=== PATIENT | female | born 1995 | race Caucasian/White ===

== ENCOUNTER 2024-04-15 09:45 | Outpatient (RCR) | payer OTHER, SELFPAY ==
--- NOTE | 2024-03-27 13:48 | OT.OP.EVAL ---
Visit Care Team Role Provider Type Sawyer Rodríguez DO Attending Provider Non-Staff Family Provider Primary Care Provider Referring Provider Specialty: Family Practice Address: [address] [place] [address], [id number] Email: Occupational Therapy Initial Evaluation OT Outpatient Adult Evaluation Start: 03/27/24 13:08 Freq: Status: Active Protocol: Document 03/27/24 13:09 AMS (Rec: 03/27/24 13:47 AMS [id number]) General Information - Adult Visit Number 11/[id number] Plan of Care Dates 03/27/24 - 05/08/24 Insurance Information Prime; *Auth x 12 visits Visit Start Time 11:15 Visit Stop Time 11:45 Treatment Setting Outpatient Care Note Type Initial Evaluation Referring Physician Sawyer Rodríguez MD Reason for Referral Chronic B hand pain Identification Confirmed Yes Identification Confirmed By Self Goals Short Term Goals 1. Angelina will present with improvements relative to wrist strength: 1a. 5/5 L wrist flex vs initial 4+/5 L wrist flex 1b. 5/[address] vs initial 4+/[address] 1c. 5/5 R wrist UD vs initial 4+/5 R wrist UD Clinical Psychologist Private Practice Goals 1. Angelina will be modified independent with home exercise program referring to written and visual instructions as needed. 2. Angelina will present with increased functional abilities ; this will be evidenced by the followina. Angelina will obtain a QuickDASH UE Outcome Measure score of 25.0 or less vs initial score of 52.27. 2b. Angelina will obtain a QuickDASH UE Work Module score of 50.00 or less vs initial score of 62.5. Assessment/Plan Treatment Assessment Angelina is 28 years-old; she is R hand dominant. She was referred to outpatient OT by Sawyer Rodríguez MD, secondary to chronic bilateral hand pain . Angelina reports feeling weaker relative to hand strength. 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 She reported that symptoms presented approximately 1 year ago; she denied specific incident that led to onset of symptoms. 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 She reports constant pain; pain presents during completion of written tasks and/or prolonged prepping of fruits and vegetables (for approx 30 minutes) and/or prolonged use of personal cell phone (she holds cell phone in one hand and uses other hand to type in keys/to navigate). She does have a prescription for topical cream for pain management (which reportedly leads to worsening of symptoms ). Medical history is significant for back and jaw pain and headaches. Wrist/Hand Pain Assessment Grid completed; indication of 5 out of 10 on pain scale relative to volar/palmar surfaces of bilateral hands; 6 out of 10 on pain scale relative to volar surfaces of 2-5 MPJs distal to PIPJs; 6 out of 10 on pain scale relative to dorsal surfaces of digits 2-5 between MPJs and PIPJs. Pain/discomfort was also indicated relative to volar/dorsal surfaces of bilateral wrists. QuickDASH UE Outcome Measure Score = 52.27 ; QuickDASH UE Work Module Score = 62.5. (+) opposition of thumbs bilaterally to each digit pad; (+) ability to execute thumb slides to each digit 2-5 bilaterally. (-) intrinsic tightness bilaterally. (+) thumb adductor tightness (R > L). 0-65 degrees bilateral active wrist ext. 0-60 degrees bilateral active wrist flex. 0-25 degrees active R wrist UD vs 0-28 degrees active L wrist UD. 0-15 degrees bilateral active wrist [address]. 0- 45 degrees active bilateral thumb palmar radial abduction; 0-45 degrees active R thumb radial abd vs 0-53 degrees active L thumb radial abd. Dynamometer II Circular Sawyer Stone Strength Testing Results w/ elbows in 90 degrees flexion = 52.0# of force R cost accounting manager (compared to 25- 29 y.o. female norm 74.5 +/- 13.9) vs 32.0# of force L cost accounting manager (compared to 25-29 y.o. female norm 63.5 +/- 12.2). Dynamometer II strength testing results w/ elbows extended = 34.0# of force R cost accounting manager vs 28.0# of force L cost accounting manager. Pinchometer strength testing results = 12.0# of force R lateral shields pinch (compared to 25-29 y.o. female norm 17.7 + /- 2.1) vs 11.5# of force L lateral shields pinch (compared to 16.6 +/- 2.1); 9.0# of force R 3-jaw pinch (compared to 25- 29 y.o. female norm 17.7 +/- 3 .2) vs 9.0# of force L 3-jaw pinch (compared to 25-29 y.o. female norm 17.0 +/- 3.0); 9.0 # of force R tip pinch ( compared to 25-29 y.o. female norm 11.9 +/- 1.8) vs 7.0# of force L tip pinch (compared to 25-29 y.o. female norm 11.3 + /- 1.8). MMT Wrist Strength Results = 5/5 R wrist ext vs 5 /5 L wrist ext; 5/5 R wrist flex vs 4+/5 L wrist flex; 5/[address] vs 4+/[address] ; 4+/5 R wrist UD vs 5/5 L wrist UD. OT recommended to address wrist/hand weakness, ROM, and to support success w/ participation in meaningful activities. Home Exercise Program 03/27/24= Instructed in passive wrist flex/ext; observed to execute passive wrist ext w/ forearm pronation. Rec hold for 20-30 sec. Instructed in bilateral thumb adductor release; rec hold of 20-30 sec and then switch and repeat w/ hold. Discussed intrinsic tightness and instructed in passive hook fist for rec hold for 20-30 sec bilaterally w/ addition of passive MPJ ext for deeper stretch. Angelina denied any questions. Length of treatment (weeks) 6 Plan of Care Start Date 03/27/24 Plan of Care End Date 05/08/24 Treatment Frequency Once a Week Therapeutic Contents Active Range of Motion, Adaptive Equipment Education, Client Education,Functional Activities,Home Exercise Program,Joint Protection, Manual Therapy,Education, Neurodevelopment Treatment, Neuromuscular Re-Education, Self-Care,Stretching/ Flexibility Activities, Therapeutic Activities, Therapeutic Exercises, Modalities Modalities As Needed,As Prescribed Additional Types of Modalities Contrast bath/Heat/Ice/ Paraffin
--- NOTE | 2024-03-31 13:52 | OT.OP.TRT ---
Visit Care Team Role Provider Type Sawyer Rodríguez DO Attending Provider Non-Staff Family Provider Primary Care Provider Referring Provider Specialty: Family Practice Address: [address] [place] [address], [id number] Email: Occupational Therapy Treatment Note OT Outpatient Treatment Note - Adult Start: 03/27/24 13:08 Freq: Status: Active Protocol: Document 03/31/24 13:01 [facility] (Rec: 03/31/24 13:09 [facility] [id number]) OT Outpatient Adult Treatment Note Session Time Visit Start Time 10:30 Visit Stop Time 11:10 Visit Information Visit Number 12/[id number] Plan of Care Dates 03/27/24 - 05/08/24 Insurance Information Prime; *Auth x 12 visits Setting Treatment Setting Outpatient Care Visit Type Note Type Treatment Note General Information General Information Angelina is 28 years-old; she is R hand dominant. She was referred to outpatient OT by Sawyer Rodríguez MD, secondary to chronic bilateral hand pain . Angelina reports feeling weaker relative to hand strength. 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 She reported that symptoms presented approximately 1 year ago; she denied specific incident that led to onset of symptoms. 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 She reports constant pain; pain presents during completion of written tasks and/or prolonged prepping of fruits and vegetables (for approx 30 minutes) and/or prolonged use of personal cell phone (she holds cell phone in one hand and uses other hand to type in keys/to navigate). She does have a prescription for topical cream for pain management (which reportedly leads to worsening of symptoms ). Medical history is significant for back and jaw pain and headaches. - Subjective Observations Angelina reports that she is getting out of the ( February 2025); - Objective Objective Measurements Please refer to below for progress towards meeting established OT goals: Short Term Goals 1. Angelina will present with improvements relative to wrist strength: 1a. 5/5 L wrist flex vs initial 4+/5 L wrist flex 1b. 5/[address] vs initial 4+/[address] 1c. 5/5 R wrist UD vs initial 4+/5 R wrist UD Sheet Mill Supervisor Goals 1. Angelina will be modified independent with home exercise program referring to written and visual instructions as needed. 2. Angelina will present with increased functional abilities ; this will be evidenced by the followina. Angelina will obtain a QuickDASH UE Outcome Measure score of 25.0 or less vs initial score of 52.27. 2b. Angelina will obtain a QuickDASH UE Work Module score of 50.00 or less vs initial score of 62.5. - Exercises 5 Descriptor Wrist strengthening exercises. TB #4. Wrist UD. Bilateral. [address] Bilateral. 2 x 15. 4 Descriptor Theraputty. Firm, blue theraputty. 3 Descriptor Weighted spherical ball. 4.4# weighted spherical ball. RD twist. R UE RD twist (wrist crepitus ulnarly) 4.4# weighted spherical ball. UD twist. 2 Descriptor Passive range of motion. 20-30 hold each exercise. Wrist flex. Elbow ext. Forearm pronation. Wrist ext. Elbow ext. Forearm supination. Wrist RD. Wrist UD. 1 Descriptor UEB. Height #4. x 8 min forwards direction. x 2 min backwards direction. Seated. - Assessment Assessment of Improvement Advanced ther ex in treatment in treatment session. Rec reducing resistance w/ R wrist twist w/ weighted spherical ball (d/t ulnar sided crepitus ); monitor positioning of wrist/elbow w/ exercise and impact. Rec reducing TB resistance from #4 to #3 for wrist strengthening; reported dull ache w/ 3 out of 10 relative to dorsum of L hand. OT recommended to address wrist/hand weakness, ROM, and to support success w/ participation in meaningful activities. Home Exercise Program 03/31/24= Instructed in passive wrist RD/UD. Rec hold for 20- 30 sec. Provided w/ firm blue theraputty for home use; instructed in care and storage of putty. Rec use for 5 to 10 min pain-free; instructed in gross flexion, lateral shields pinch, oppositional pinch, pinch and twist, and digit extension. Rec 3 x a week or as desired. 03/27/24= Instructed in passive wrist flex/ext; observed to execute passive wrist ext w/ forearm pronation. Rec hold for 20-30 sec. Instructed in bilateral thumb adductor release; rec hold of 20-30 sec and then switch and repeat w/ hold. Discussed intrinsic tightness and instructed in passive hook fist for rec hold for 20-30 sec bilaterally w/ addition of passive MPJ ext for deeper stretch. Angelina denied any questions. - Plan Therapy Recommendations Advance per Rehabilitation Protocol
--- NOTE | 2024-04-10 12:05 | OT.OP.TRT ---
Visit Care Team Role Provider Type Sawyer Rodríguez DO Attending Provider Non-Staff Family Provider Primary Care Provider Referring Provider Specialty: Family Practice Address: [address] [place] [address], [id number] Email: Occupational Therapy Treatment Note OT Outpatient Treatment Note - Adult Start: 03/27/24 13:08 Freq: Status: Active Protocol: Document 04/10/24 11:37 AMS (Rec: 04/10/24 12:05 AMS [id number]) OT Outpatient Adult Treatment Note Session Time Visit Start Time 09:00 Visit Stop Time 09:40 Visit Information Visit Number 01/[id number] Plan of Care Dates 03/27/24 - 05/08/24 Insurance Information Prime; *Auth x 12 visits Setting Treatment Setting Outpatient Care Visit Type Note Type Treatment Note General Information General Information Angelina is 28 years-old; she is R hand dominant. She was referred to outpatient OT by Swayer Rodríguez MD, secondary to chronic bilateral hand pain . Angelina reports feeling weaker relative to hand strength. 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 She reported that symptoms presented approximately 1 year ago; she denied specific incident that led to onset of symptoms. 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 She reports constant pain; pain presents during completion of written tasks and/or prolonged prepping of fruits and vegetables (for approx 30 minutes) and/or prolonged use of personal cell phone (she holds cell phone in one hand and uses other hand to type in keys/to navigate). She does have a prescription for topical cream for pain management (which reportedly leads to worsening of symptoms ). Medical history is significant for back and jaw pain and headaches. - Subjective Observations Angelina reports that she is getting out of the ( February 2025); discomfort of ulnar side of wrist primarily w/ RD w/ weighted spherical ball. Angelina reported that she woke w/ some soreness of wrists; she stated it may have been d/t her moving furniture around in her home. She reports some mild distal UE swelling which leads to intermittent removal of ring; medical history is significant for back/jaw pain and headaches. - Objective Objective Measurements Please refer to below for progress towards meeting established OT goals: Short Term Goals 1. Angelina will present with improvements relative to wrist strength: 1a. 5/5 L wrist flex vs initial 4+/5 L wrist flex 1b. 5/[address] vs initial 4+/[address] 1c. 5/5 R wrist UD vs initial 4+/5 R wrist UD Intermediate Goals 1. Angelina will be modified independent with home exercise program referring to written and visual instructions as needed. 2. Angelina will present with increased functional abilities ; this will be evidenced by the followina. Angelina will obtain a QuickDASH UE Outcome Measure score of 25.0 or less vs initial score of 52.27. 2b. Angelina will obtain a QuickDASH UE Work Module score of 50.00 or less vs initial score of 62.5. - Exercises 6 Descriptor Angled trampoline. 1000 grams. Alt throw. 3 x 15. 5 Descriptor Wrist strengthening exercises. TB #3. Wrist ext. Use of arm rest w/ elbow in flex. Bilateral. 2 x 15. Wrist flex. Elbow flex. Use of arm rest w/ elbow in flex. Bilateral. [address] Elbow flex. Use of arm rest w/ elbow in flex. Bilateral. 2 x 15. Wrist UD. Elbow near full ext w/ forearm pronation. Bilateral. 2 x 15. 4 Descriptor Theraputty. Firm, blue theraputty. 3 Descriptor Weighted spherical ball. 4.4# weighted spherical ball. RD twist. 3 x 15. 4.4# weighted spherical ball. UD twist. 2 Descriptor Passive range of motion. 20-30 hold each exercise. Wrist flex. Elbow ext. Forearm pronation. Wrist ext. Elbow ext. Forearm supination. Wrist RD. Wrist UD. 1 Descriptor UEB. Height #5. x 7 min forwards direction. x 2 min backwards direction. Seated. - Assessment Assessment of Improvement Advanced ther ex in treatment in treatment session. Advanced HEP; provided w/ personal TB# 3. Discomfort reported primarily of dorsal ulnar surface of R wrist w/ execution of primarily RD w/ weighted spherical ball. Fatigue/weakness w/ theraband strengthening exercises; thus, had her complete 2 sets of 15 ; will need ot work up to 3 sets of 15 reps as tolerated. OT recommended to address wrist/hand weakness, ROM, and to support success w/ participation in meaningful activities. Home Exercise Program 04/10/24 = Instructed in wrist TB strengthening; provided w/ TB #3 for home use. Instructed in resisted TB wrist flex, wrist ext, wrist RD, wrist UD. Rec start w/ 2 sets of 15 reps and increasing to 3 sets of 15 reps as able to do so; completing exercises every other day, or 3 x per week. 03/31/24 = Instructed in passive wrist RD/UD. Rec hold for 20-30 sec. Provided w/ firm blue theraputty for home use; instructed in care and storage of putty. Rec use for 5 to 10 min pain-free; instructed in gross flexion, lateral shields pinch, oppositional pinch, pinch and twist, and digit extension. Rec 3 x a week or as desired. 03/27/24 = Instructed in passive wrist flex/ext; observed to execute passive wrist ext w/ forearm pronation . Rec hold for 20-30 sec. Instructed in bilateral thumb adductor release; rec hold of 20-30 sec and then switch and repeat w/ hold. Discussed intrinsic tightness and instructed in passive hook fist for rec hold for 20-30 sec bilaterally w/ addition of passive MPJ ext for deeper stretch. Angelina denied any questions. - Plan Therapy Recommendations Advance per Rehabilitation Protocol
--- NOTE | 2024-04-15 12:23 | OT.OP.DC ---
Visit Care Team Role Provider Type Sawyer Rodríguez DO Attending Provider Non-Staff Family Provider Primary Care Provider Referring Provider Address: [address] [place] [address], [id number] Email: OT Outpatient OT Outpatient Adult Evaluation Start: 03/27/24 13:08 Freq: Status: Active Protocol: Document 03/27/24 13:09 AMS (Rec: 03/27/24 13:47 AMS [id number]) General Information - Adult Visit Information Visit Number [id number] Plan of Care Dates 03/27/24 - 05/08/24 Insurance Information Prime; *Auth x 12 visits Session Time Visit Start Time 11:15 Visit Stop Time 11:45 Setting Treatment Setting Outpatient Care Visit Type Note Type Initial Evaluation Referral Referring Physician Sawyer Rodríguez MD Reason for Referral Chronic B hand pain Identification Identification Confirmed Yes Identification Confirmed By Self Goals Short Term Goals Short Term Goals 1. Angelina will present with improvements relative to wrist strength: 1a. 5/5 L wrist flex vs initial 4+/5 L wrist flex 1b. 5/[address] vs initial 4+/[address] 1c. 5/5 R wrist UD vs initial 4+/5 R wrist UD Solid Waste Management Engineer Goals Solid Waste Management Engineer Goals 1. Angelina will be modified independent with home exercise program referring to written and visual instructions as needed. 2. Angelina will present with increased functional abilities ; this will be evidenced by the followina. Angelina will obtain a QuickDASH UE Outcome Measure score of 25.0 or less vs initial score of 52.27. 2b. Angelina will obtain a QuickDASH UE Work Module score of 50.00 or less vs initial score of 62.5. Assessment/Plan Assessment Treatment Assessment Angelina is 28 years-old; she is R hand dominant. She was referred to outpatient OT by Sawyer Rodríguez MD, secondary to chronic bilateral hand pain . Angelina reports feeling weaker relative to hand strength. 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 She reported that symptoms presented approximately 1 year ago; she denied specific incident that led to onset of symptoms. 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 She reports constant pain; pain presents during completion of written tasks and/or prolonged prepping of fruits and vegetables (for approx 30 minutes) and/or prolonged use of personal cell phone (she holds cell phone in one hand and uses other hand to type in keys/to navigate). She does have a prescription for topical cream for pain management (which reportedly leads to worsening of symptoms ). Medical history is significant for back and jaw pain and headaches. Wrist/Hand Pain Assessment Grid completed; indication of 5 out of 10 on pain scale relative to volar/palmar surfaces of bilateral hands; 6 out of 10 on pain scale relative to volar surfaces of 2-5 MPJs distal to PIPJs; 6 out of 10 on pain scale relative to dorsal surfaces of digits 2-5 between MPJs and PIPJs. Pain/discomfort was also indicated relative to volar/dorsal surfaces of bilateral wrists. QuickDASH UE Outcome Measure Score = 52.27 ; QuickDASH UE Work Module Score = 62.5. (+) opposition of thumbs bilaterally to each digit pad; (+) ability to execute thumb slides to each digit 2-5 bilaterally. (-) intrinsic tightness bilaterally. (+) thumb adductor tightness (R > L). 0-65 degrees bilateral active wrist ext. 0-60 degrees bilateral active wrist flex. 0-25 degrees active R wrist UD vs 0-28 degrees active L wrist UD. 0-[address] active wrist [address]. 0- 45 degrees active bilateral thumb palmar radial abduction; 0-45 degrees active R thumb radial abd vs 0-53 degrees active L thumb radial abd. Dynamometer II Saw Superintendent Strength Testing Results w/ elbows in 90 degrees flexion = 52.0# of force R dispatcher [employer] (compared to 25- 29 y.o. female norm 74.5 +/- 13.9) vs 32.0# of force L dispatcher [employer] (compared to 25-29 y.o. female norm 63.5 +/- 12.2). Dynamometer II strength testing results w/ elbows extended = 34.0# of force R [employer]cher [employer] vs 28.0# of force L dispatcher [employer]. Pinchometer strength testing results = 12.0# of force R lateral shields pinch (compared to 25-29 y.o. female norm 17.7 + /- 2.1) vs 11.5# of force L lateral shields pinch (compared to 16.6 +/- 2.1); 9.0# of force R 3-jaw pinch (compared to 25- 29 y.o. female norm 17.7 +/- 3 .2) vs 9.0# of force L 3-jaw pinch (compared to 25-29 y.o. female norm 17.0 +/- 3.0); 9.0 # of force R tip pinch ( compared to 25-29 y.o. female norm 11.9 +/- 1.8) vs 7.0# of force L tip pinch (compared to 25-29 y.o. female norm 11.3 + /- 1.8). MMT Wrist Strength Results = 5/5 R wrist ext vs 5 /5 L wrist ext; 5/5 R wrist flex vs 4+/5 L wrist flex; 5/[address] vs 4+/[address] ; 4+/5 R wrist UD vs 5/5 L wrist UD. OT recommended to address wrist/hand weakness, ROM, and to support success w/ participation in meaningful activities. Home Exercise Program 03/27/24= Instructed in passive wrist flex/ext; observed to execute passive wrist ext w/ forearm pronation. Rec hold for 20-30 sec. Instructed in bilateral thumb adductor release; rec hold of 20-30 sec and then switch and repeat w/ hold. Discussed intrinsic tightness and instructed in passive hook fist for rec hold for 20-30 sec bilaterally w/ addition of passive MPJ ext for deeper stretch. Angelina denied any questions. Plan Length of treatment (weeks) 6 Plan of Care Start Date 03/27/24 Plan of Care End Date 05/08/24 Treatment Frequency Once a Week Therapeutic Contents Active Range of Motion, Adaptive Equipment Education, Client Education,Functional Activities,Home Exercise Program,Joint Protection, Manual Therapy,Education, Neurodevelopment Treatment, Neuromuscular Re-Education, Self-Care,Stretching/ Flexibility Activities, Therapeutic Activities, Therapeutic Exercises, Modalities Modalities As Needed,As Prescribed Additional Types of Modalities Contrast bath/Heat/Ice/ Paraffin Functional Wrist/Hand Scan Hand Side Sensory Assessment Sensory Profile2 OT Outpatient Treatment Note - Adult Start: 03/27/24 13:08 Freq: Status: Active Protocol: Document 04/15/24 12:07 AMS (Rec: 04/15/24 12:23 AMS [id number]) OT Outpatient Adult Treatment Note Session Time Visit Start Time 09:45 Visit Stop Time 10:25 Visit Information Visit Number [id number] Plan of Care Dates 03/27/24 - 05/08/24 Insurance Information Prime; *Auth x 12 visits Setting Treatment Setting Outpatient Care Visit Type Note Type Treatment Note General Information General Information Angelina is 28 years-old; she is R hand dominant. She was referred to outpatient OT by Sawyer Rodríguez MD, secondary to chronic bilateral hand pain . Angelina reports feeling weaker relative to hand strength. 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 She reported that symptoms presented approximately 1 year ago; she denied specific incident that led to onset of symptoms. 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 She reports constant pain; pain presents during completion of written tasks and/or prolonged prepping of fruits and vegetables (for approx 30 minutes) and/or prolonged use of personal cell phone (she holds cell phone in one hand and uses other hand to type in keys/to navigate). She does have a prescription for topical cream for pain management (which reportedly leads to worsening of symptoms ). Medical history is significant for back and jaw pain and headaches. - Subjective Observations Report of bilateral forearm tightness; report of distal UE stretches helping L forearm. Angelina reports that she is getting out of the ( February 2025); she reports some mild distal UE swelling which leads to intermittent removal of ring; medical history is significant for back/jaw pain and headaches. - Objective Objective Measurements Please refer to below for progress towards meeting established OT goals: Short Term Goals GOALS D/C 04/15/24 1. Angelina will present with improvements relative to wrist strength: 1a. 5/5 L wrist flex vs initial 4+/5 L wrist flex 1b. 5/[address] vs initial 4+/[address] 1c. 5/5 R wrist UD vs initial 4+/5 R wrist UD Shelter Goals GOALS MET 04/15/24 1. Angelina will be modified independent with home exercise program referring to written and visual instructions as needed. *MET 04/15/24 GOALS D/C 04/15/24 2. Angelina will present with increased functional abilities ; this will be evidenced by the followina. Angelina will obtain a QuickDASH UE Outcome Measure score of 25.0 or less vs initial score of 52.27. 2b. Angelina will obtain a QuickDASH UE Work Module score of 50.00 or less vs initial score of 62.5. - Exercises 7 Descriptor Red flexbar. Wrist flex. 3 x 10. Wrist ext. [address] 3 x 10. Wrist UD. 3 x 10. Forearm supination. 3 x 15. Forearm pronation. 3 x 15. Forearm supination w/ sustained hold for 5-10 sec. 6 Descriptor Angled trampoline. 1000 grams. Alt throw. 3 x 15. 5 Descriptor Wrist strengthening exercises. TB #3. Wrist ext. Use of arm rest w/ elbow in flex. Bilateral. 2 x 15. Wrist flex. Elbow flex. Use of arm rest w/ elbow in flex. Bilateral. [address] Elbow flex. Use of arm rest w/ elbow in flex. Bilateral. 2 x 15. Wrist UD. Elbow near full ext w/ forearm pronation. Bilateral. 2 x 15. 3 Descriptor Weighted spherical ball. 4.4# weighted spherical ball. RD twist. 3 x 15. 4.4# weighted spherical ball. UD twist. 2 Descriptor Passive range of motion. 20-30 hold each exercise. Wrist flex. Elbow ext. Forearm pronation. Wrist ext. Elbow ext. Forearm supination. Wrist RD. Wrist UD. Instructed in passive wrist ext w/ elbow ext w/ forearm supination and wrist UD. 1 Descriptor UEB. Height #5. x 10 min forwards direction. - Assessment Assessment of Improvement Advanced HEP; instructed in distal UE strengthening w/ use of Theraband Flexbar (Red flexbar rec for resistance for home use) vs use of Theraband . Also instructed in wrist ext combined w/ elbow ext, forearm supination and slight UD. Angelina denied any questions re: HEP. Rec d/c from outpatient OT at this time. Home Exercise Program 04/15/24 = Instructed in combined passive wrist ext w/ elbow ext w/ forearm supination and wrist UD. Rec hold for 20-30 sec. Complete bilaterally. Also instructed in alternative distal UE strengthening w/ red Theraband Flexbar vs theraband. Instructed in forearm pronation, forearm supination, forearm supination w/ sustained hold for [employer]cher [employer]/hand strengthening for hold of 5-10 sec, wrist ext, wrist flex, wrist RD and wrist UD. Rec 3 x 15 repetitions for exercises, every other day or 3 x per week; except for dispatcher [employer]/hand strengthening exercise w/ rec for working up to 1 set of 10. 04/10/24 = Instructed in wrist TB strengthening; provided w/ TB #3 for home use. Instructed in resisted TB wrist flex, wrist ext, wrist RD, wrist UD. Rec start w/ 2 sets of 15 reps and increasing to 3 sets of 15 reps as able to do so; completing exercises every other day, or 3 x per week. 03/31/24 = Instructed in passive wrist RD/UD. Rec hold for 20-30 sec. Provided w/ firm blue theraputty for home use; instructed in care and storage of putty. Rec use for 5 to 10 min pain-free; instructed in gross flexion, lateral shields pinch, oppositional pinch, pinch and twist, and digit extension. Rec 3 x a week or as desired. 03/27/24 = Instructed in passive wrist flex/ext; observed to execute passive wrist ext w/ forearm pronation . Rec hold for 20-30 sec. Instructed in bilateral thumb adductor release; rec hold of 20-30 sec and then switch and repeat w/ hold. Discussed intrinsic tightness and instructed in passive hook fist for rec hold for 20-30 sec bilaterally w/ addition of passive MPJ ext for deeper stretch. Angelina denied any questions. - Plan Therapy Recommendations Discharge from Occupational Therapy
== END 2024-04-23 10:23 | disposition home or self-care (01) ==
LOC: OT 09:45
PROVIDERS: Family Provider Family Medicine; PCP Family Medicine; Referring Provider Family Medicine; Visit Provider Family Medicine
DX: M79.2 Neuralgia and neuritis, unspecified (principal)
CPT/HCPCS: 97110; 97165